=== PATIENT | male | born 1980 | race African-American/Black ===

== ENCOUNTER 2017-11-30 21:30 | Emergency (ER) | payer SELFPAY ==
--- NOTE | 2017-11-30 21:55 | PDOC ---
Rapid Medical Evaluation Time Seen by Provider: 11/30/17 21:53 Medical Evaluation: Allergies Allergy/AdvReac Type Severity Reaction Status Date / Time No Known Allergies Allergy Verified 03/10/14 04:16 11/30/17 21:53 I have performed a brief in-person evaluation of this patient. The patient presents with a chief complaint of: banged head against other teammate, cut to eyebrow, last tetanus shot within last 2 years Pertinent physical exam findings: 1.5 inch lac to left eyebrow I have ordered the following: nothing The patient will proceed to the ED for further evaluation. Discharge Disposition - Diagnosis Laceration - Referrals - Patient Instructions - Post Discharge Activity
[2017-11-30 22:04] VITALS: BP 135/80; PULSE 66; TEMP 98.5; BMI 26.4
--- NOTE | 2017-11-30 22:47 | PDOC ---
History of Present Illness - General Chief Complaint: Laceration Stated Complaint: HEAD INJURY Time Seen by Provider: 11/30/17 21:53 History Source: Patient - History of Present Illness Timing/Duration: reports: this evening Location: reports: face Past History - Past Medical History Allergies/Adverse Reactions: Allergies Allergy/AdvReac Type Severity Reaction Status Date / Time No Known Allergies Allergy Verified 11/30/17 21:56 Home Medications: Ambulatory Orders No Home Medications 0 dose .ROUTE UTDICT 03/10/14 Anemia: No COPD: No CHF: No Other medical history: Pt denies - Surgical History Abdominal Surgery: No - Immunization History Immunization Up to Date: Yes - Suicide/Smoking/Psychosocial Hx Smoking History: Never smoked Have you smoked in the past 12 months: No Information on smoking cessation initiated: No Hx Alcohol Use: No Drug/Substance Use Hx: Yes (marijuana) Substance Use Type: Marijuana Review of Systems - Review of Systems ABD/GI: No: Nausea, Vomiting Neurological: No: Headache, Dizziness *Physical Exam - Vital Signs Last Vital Signs Temp Pulse Resp BP Pulse Ox 98.5 F 66 20 135/80 99 11/30/17 21:57 11/30/17 21:57 11/30/17 21:57 11/30/17 21:57 11/30/17 21:57 - Physical Exam General Appearance: Yes: Appropriately Dressed HEENT: positive: Normal Voice, Other (~3cm linear superficial lac to L brow) Neck: positive: Supple Respiratory/Chest: negative: Respiratory Distress Integumentary: positive: Dry, Warm Neurologic: positive: Fully Oriented, Alert, Normal Mood/Affect Procedures - Laceration/Wound Repair Face Wound Length: 2.6 to 5.0 cm Wound's Depth, Shape: superficial Irrigated w/ Saline: Yes Betadine Prep: Yes Anesthesia: 1% Lidocaine Amount of Anesthetic (ccs): 7 Wound Repaired With: Sutures Suture Size/Type: 6:0, nylon Number of Sutures: 13 Sterile Dressing Applied: Yes Medical Decision Making - Medical Decision Making 11/30/17 22:46 36-year-old male, no significant history, here with facial lac after accidentally bumping into teammate while playing basketball tonight. Denies LOC and no headache, dizziness, nausea, vomiting or visual changes. Patient well-appearing and stable with approximately 3 cm linear superficial lac to left brow that was sutured without complications. Tetanus up-to-date. Dc with wound check as needed in 48 hours *DC/Admit/Observation/Transfer Diagnosis at time of Disposition: Laceration - Discharge Dispostion Disposition: HOME Condition at time of disposition: Improved - Referrals - Patient Instructions Printed Discharge Instructions: DI for Laceration Repair Additional Instructions: Keep dressing in place for at least 24 hours after which one can be opened to air. You can gently cleaned wound with mild soap and water after 24 hours to prevent crusting over the suture knots. You can also apply an antibiotic ointment twice a day until sutures are removed. Return for redness, discharge or fever Sutures are removed in 5 days - Post Discharge Activity
== END 2017-11-30 22:56 | disposition home or self-care (01) ==
LOC: JERFT 21:30
PROC: 0HQ1XZZ Repair Face Skin, External Approach (ICD-10-PCS; principal; 2017-11-30)
DX: S01.112A Laceration without foreign body of left eyelid and periocular area, initial encounter (principal); W51.XXXA Accidental striking against or bumped into by another person, initial encounter; Y93.67 Activity, basketball; Y92.310 Basketball court as the place of occurrence of the external cause; Y99.8 Other external cause status
CPT/HCPCS: 99281-25

== ENCOUNTER 2017-12-07 13:40 | Emergency (ER) | payer SELFPAY ==
[2017-12-07 13:48] VITALS: BP 126/86; PULSE 56; TEMP 98.1; BMI 27.4
--- NOTE | 2017-12-07 14:06 | PDOC ---
Suture Removal/Wound Check HPI - History of Present Illness Chief Complaint: Suture/Staple Removal(Here) Stated Complaint: SUTURE REMOVAL Time Seen by Provider: 12/07/17 13:59 History Source: Yes: Patient Exam Limitations: Yes: No Limitations Treated at: [facility] ED - Previous ED Treatment Type of procedure performed on last visit: Yes: Laceration Repair Tetanus Immunization: Yes: Up to Date - Onset of Previous Treatment Date of Occurence: 11/30/17 Past History - Travel Traveled outside of the country in the last 30 days: No Close contact w/someone who was outside of country & ill: No - Past Medical History Allergies/Adverse Reactions: Allergies Allergy/AdvReac Type Severity Reaction Status Date / Time No Known Allergies Allergy Verified 12/07/17 13:45 Home Medications: Ambulatory Orders NK [No Known Home Medication] 12/07/17 Anemia: No COPD: No CHF: No Other medical history: DENIES. - Surgical History Abdominal Surgery: No - Immunization History Immunization Up to Date: Yes - Suicide/Smoking/Psychosocial Hx Smoking History: Never smoked Have you smoked in the past 12 months: No Hx Alcohol Use: No Drug/Substance Use Hx: Yes (marijuana) Substance Use Type: Marijuana Suture Removal/Wound Check PE - Physical Exam Laceration/Wound Check Symptoms: reports: Improved. denies: Redness, Bleeding Current Severity Level: None Location of Laceration/Wound: left: Head (eye brow; 13 simple interrupted sutures removed.) *Review of Systems - Review of Systems Able to Perform ROS?: Yes Constitutional: No: Chills, Fever, Weakness Integumentary: Yes: Other (13 simple interrupted sutures present). No: Erythema , Pruritus, Rash Neurological: No: Headache, Numbness, Tingling, Weakness All Other Systems: Reviewed and Negative Medical Decision Making - Medical Decision Making 12/07/17 14:44 Patient is a 36-year-old male who presents emergency department today to have his stitches removed. He has been placed on 11/30/2017 in this emergency department after he was hit in the head playing basketball. The wound appears well-healed. 13 simple interrupted sutures removed at this time. Wound is well approximated and closed. One Steri-Strip placed on the lateral edge for further support. Return precautions given. Patient understands all discharge instructions and all questions were answered. *DC/Admit/Observation/Transfer Diagnosis at time of Disposition: Visit for suture removal - Discharge Dispostion Disposition: HOME Condition at time of disposition: Stable Admit: No - Referrals Referrals: Ezequiel Adkins MD [Staff Physician] - - Patient Instructions Printed Discharge Instructions: DI for Suture Removal Additional Instructions: You had your stitches removed today. Please continue to keep the area clean and dry. You may use bacitracin on it once a day to prevent infection. In one week you may use Mederma on the area to help the scarring. Continue to monitor for signs of infection Return to the ED if you have fevers, redness or drainage from the site, or if you have any changes in your symptoms. - Post Discharge Activity
== END 2017-12-07 14:45 | disposition home or self-care (01) ==
LOC: JERFT 13:40
DX: Z48.02 Encounter for removal of sutures (principal)
CPT/HCPCS: 99281-25

== ENCOUNTER 2019-10-12 07:29 | Emergency (ER) | payer OTHER ==
[2019-10-12 07:48] VITALS: BP 122/69; PULSE 51; TEMP 98.1; BMI 26.9
--- NOTE | 2019-10-12 08:15 | PDOC ---
History of Present Illness - General Chief Complaint: Pain, Acute Stated Complaint: R KNEE PAIN S/P FALL Time Seen by Provider: 10/12/19 07:51 History Source: Patient Exam Limitations: Clinical Condition - History of Present Illness Initial Comments: 10/12/19 08:27 Patient with past medical history of left meniscus repair 2 years ago presented with complaint of aching left knee pain on medial side status post slip and fall 3 days ago on a staircase. Patient reported going downstairs which was slippery and he slipped overextending left knee. Denies loss of consciousness. Patient reported knee swelled up 3 days ago which has improved today and pain has been improving with Motrin. Patient reported have mild pain compared to 3 days ago. Denies weakness in left knee. Denies numbness or tingling sensation. Patient using [id number] knee brace to help support knee. Denies any other symptoms Occurred: reports: other (2 days) Severity: reports: mild Pain Location: reports: lower extremity (left knee pain) Method of Injury: Yes: fall Past History - Past Medical History Allergies/Adverse Reactions: Allergies Allergy/AdvReac Type Severity Reaction Status Date / Time No Known Allergies Allergy Verified 10/12/19 07:42 Home Medications: Ambulatory Orders Ibuprofen 800 mg PO Q8H PRN #20 tablet 10/12/19 Anemia: No COPD: No CHF: No - Surgical History Abdominal Surgery: No - Immunization History Immunization Up to Date: Yes - Psycho Social/Smoking Cessation Hx Smoking History: Current every day smoker Have you smoked in the past 12 months: Yes Information on smoking cessation initiated: No Hx Alcohol Use: Yes Drug/Substance Use Hx: Yes Substance Use Type: Marijuana Review of Systems - Review of Systems Able to Perform ROS?: Yes Is the patient limited American proficient: No Constitutional: No: Chills, Fever, Malaise HEENTM: No: Symptoms Reported, See HPI, Eye Pain, Blurred Vision, Tearing, Recent change in vision, Double Vision, Cataracts, Ear Pain, Ocular Prothesis, Ear Discharge, Nose Pain, Nose Congestion, Tinnitus, Nose Bleeding, Hearing Loss , Throat Pain, Throat Swelling, Mouth Pain, Dental Problems, Difficulty Swallowing, Mouth Swelling, Other Respiratory: No: Symptoms reported, See HPI, Cough, Orthopnea, Shortness of Breath, SOB with Exertion, SOB at Rest, Stridor, Wheezing, Productive cough, Hemoptysis, Other Cardiac (ROS): No: Symptoms Reported, See HPI, Chest Pain, Edema, Irregular Heart Rate, Lightheadedness, Palpitations, Syncope, Chest Tightness, Other ABD/GI: No: Symptoms Reported Musculoskeletal: Yes: Symptoms Reported, See HPI, Joint Pain (left knee pain), Joint Swelling (left knee), Muscle Pain (medial aspect of left knee pain) Integumentary: No: Symptoms Reported All Other Systems: Reviewed and Negative *Physical Exam - Vital Signs Last Vital Signs Temp Pulse Resp BP Pulse Ox 98.1 F 51 L 18 122/69 100 10/12/19 07:42 10/12/19 07:42 10/12/19 07:42 10/12/19 07:42 10/12/19 07:42 - Physical Exam 10/12/19 08:11 GENERAL: Well developed, well nourished. Awake and alert. No acute distress. PULMONARY: No evidence of respiratory distress. MUSCULOSKELETAL : Moderate point tenderness over medial collateral ligament of left knee. Small 1 mm superficial abrasion to anterior patella of left knee. No joint effusion. Negative anterior /posterior drawer test of left knee. No bony deformities EXTREMITIES: No cyanosis. No clubbing. No edema. No calf tenderness. SKIN: Warm and dry. Normal capillary refill. 1 mm area of superficial abrasion to anterior patella of left knee. No joint effusion. No skin erythema or increased warmth. NEUROLOGICAL: Alert, awake, appropriate. No motor deficits in the lower extremities. Gait is normal without ataxia. PSYCHIATRIC: Cooperative. Good eye contact. Appropriate mood and affect. General Appearance: Yes: Nourished, Appropriately Dressed. No: Apparent Distress ED Treatment Course - RADIOLOGY Radiology Studies Ordered: Category Date Time Status KNEE 3 POS-LEFT [RAD] Stat Radiology 10/12/19 08:08 Ordered Medical Decision Making - Medical Decision Making 10/12/19 08:49 Patient with past medical history of left meniscus repair 2 years ago presented with complaint of aching left knee pain on medial side status post slip and fall 3 days ago on a staircase. Patient reported going downstairs which was slippery and he slipped overextending left knee. Denies loss of consciousness. Patient reported knee swelled up 3 days ago which has improved today and pain has been improving with Motrin. Patient reported have mild pain compared to 3 days ago. Denies weakness in left knee. Denies numbness or tingling sensation. Patient using [id number] knee brace to help support knee. Denies any other symptoms Exam significant for mild tenderness to medial collateral ligament of left knee. No visible swelling or deformity. No joint effusion. Negative anterior posterior drawer test of left knee. X-ray of left knee shows loose body in tibial plateau which is likely from patient previous meniscus repair surgery. Patient stable for discharge and ibuprofen PRN for pain and continue home knee brace with orthopedics follow-up Discharge - Discharge Information Problems reviewed: Yes Clinical Impression/Diagnosis: Left knee sprain Qualifiers: Encounter type: initial encounter Involved ligament of knee: medial collateral ligament Qualified Code(s): S83.412A - Sprain of medial collateral ligament of left knee, initial encounter Condition: Stable Disposition: HOME - Admission No - Additional Discharge Information Prescriptions: Ibuprofen 800 mg PO Q8H PRN #20 tablet PRN Reason: pain - Follow up/Referral Referrals: Tyler Rodrigues DO [Staff Physician] - - Patient Discharge Instructions Patient Printed Discharge Instructions: DI for Knee Sprain Additional Instructions: Your x-ray of left knee shows no acute fracture or dislocation however x-ray shows loose body in your joints which is likely from previous meniscus repair as discussed. Continue with knee brace daily and follow-up referred to orthopedics as discussed. Take prescribed Motrin as needed for pain - Post Discharge Activity
== END 2019-10-12 08:54 | disposition home or self-care (01) ==
LOC: JER 07:29
DX: S83.412A Sprain of medial collateral ligament of left knee, initial encounter (principal); W10.8XXA Fall (on) (from) other stairs and steps, initial encounter; Y93.89 Activity, other specified; Y92.038 Other place in apartment as the place of occurrence of the external cause; Y99.8 Other external cause status
CPT/HCPCS: 73562-TC-LT-FY; 99283-25